=== PATIENT | male | born 1940 | race Caucasian/White ===

== ENCOUNTER 2019-04-19 00:36 | Day surgery (SDC) | payer MEDICARE, SELFPAY ==
[2019-04-01 08:28] VITALS: BMI 28.8
[2019-04-19 10:10] VITALS: BP 144/90; PULSE 58; RESP 16; TEMP 35.9; O2SAT 98; BMI 27.8
[2019-04-19] MEDS: LACTATED RINGERS 1,000 ML 30 ML IV CONT (10:10)
--- NOTE | 2019-04-19 10:36 | WPDANESEPPF ---
Anes - Initial Pre Proc Eval Procedure: Operation Date: 04/19/19 11:30 Proposed Procedures p Excision of Epidermal Cyst Left Mid Back Times Two, Excision of Epidermal Cyst Mid Upper Back - Akshat Lemon MD Date/Time: 04/19/19 10:36 Surgeon: Akshat Lemon MD Pre Op Diagnosis: infected epidermal cyst, non infected epidermal cy Patient Data Age: 79 Gender: M Height: 6 ft 1 in Weight: 95.5 kg Last Vital Signs Temp 35.9 C L 04/19/19 10:10 Pulse 58 L 04/19/19 10:10 Resp 16 04/19/19 10:10 BP 144/90 H 04/19/19 10:10 Pulse Ox 98 04/19/19 10:10 Allergies Allergy/AdvReac Type Severity Reaction Status Date / Time Beta-Blockers Allergy Unknown syncope Verified 04/19/19 10:17 (Beta-Adrenergic Bloc Home Medications Medication Instructions Recorded Confirmed Type aspirin 81 mg tablet,delayed 81 mg PO HS 03/05/19 04/19/19 History release glucosamine 500 mg-msm 100 mg-vit 1 cap PO DAILY 03/05/19 04/19/19 History C 20 ve-aggzu-cmtn-primrose capsule nitroglycerin 0.4 mg sublingual 0.4 mg SUBLINGUAL Q5M PRN 03/05/19 04/19/19 History tablet omega-3 fatty acids 1,000 mg 1,000 mg PO DAILY 03/05/19 04/19/19 History capsule sertraline 50 mg tablet 50 mg PO BID 03/05/19 04/19/19 History simvastatin 20 mg tablet 20 mg PO HS 03/05/19 04/19/19 History Patient hx anesthesia problems: none Family hx anesthesia problems: none PMFSH Past Medical History Medical History Anxiety CAD (coronary artery disease) Cataracts, bilateral Clubbed foot Colorectal cancer Depression Epidermal cyst of neck High cholesterol History of angina History of chemotherapy History of heart disease HTN (hypertension) Hyperlipidemia Mitral valve prolapse MRSA (methicillin resistant Staphylococcus aureus) Surgical History Surgical History H/O aortic valve replacement H/O knee surgery History of cardiac catheterization History of cataract surgery History of colon resection History of coronary artery stent placement History of elbow surgery Right History of inguinal hernia repair History of tonsillectomy Hx of CABG Family History Family History Father Acute myocardial infarction Patient's father is , Onset Age: 70 Mother Cerebrovascular accident, Onset Age: 85 Carcinoma of colon, Onset Age: 85 Family history of malignant neoplasm of breast in first degree relative, Onset Age: 85 Family history of malignant neoplasm of thyroid, Onset Age: 85 Sibling Family history of Parkinson's disease Social History Social History Years smoked: 40 Smoking status: Former smoker Second hand tobacco smoke exposure: Yes Alcohol intake: current Gender identity (if verbalized by the patient): Male Anes - Eval Final PreProcedure Day of Procedure 04/19/19 10:36 Patient weight: overweight Heart: regular rate and rhythm Lungs: decreased breath sounds Airway: Mallampati scale class II Neurological: alert and oriented Last oral intake: >/= 8 hours ASA classification: III Emergent: no Anesthetic plan: proceed Anesthesia type and monitoring: general GIVS and standard monitoring Informed Consent: The patient's anesthetic plan and its attendant risks and benefits were discussed with the patient/family/POA. Questions were solicited and answers provided to the satisfaction of the patient/family/POA.
--- NOTE | 2019-04-19 10:46 | WPDHPUPDATE1 ---
History and Physical Update Update Date/Time: 04/19/19 10:46 History and Physical has been reviewed, including an updated exam of the patient. There are NO changes in the patient's condition. Risks, benefits, and alternatives have been discussed and questions answered. Patient agrees to proceed with procedure.
[2019-04-19] MEDS: ceFAZolin 2 GM/D5W 50 ML 2 GM/50 ML BAG IVPB (10:55)
[2019-04-19] MEDS: BUPIVACAINE/EPINEPHRINE 0.5% 30 ML VIAL 10 ML INFILTRATE (11:19)
[2019-04-19 12:00] VITALS: BP 122/68; PULSE 60; RESP 16; TEMP 36.2; O2SAT 92
[2019-04-19 12:31] VITALS: BP 128/65; PULSE 63; RESP 16
--- NOTE | 2019-04-19 12:35 | P.OP_ITS ---
Procedure Note - Detailed Date of procedure: 04/19/19 Pre-op diagnosis: infected epidermal cyst, non infected epidermal cy Post-op diagnosis: same Procedure performed: Excision of skin lesions (X3) 1. Recently infected epidermal cyst left mid back 2. non infected epidermal cyst slightly medial and above to 1. 3. Not infected epidermal cyst high upper mid back. Description of procedure: The patient was placed in the right lateral decubitus position. After a surgical time out confirming patient and procedure the patient was prepped and draped in the usual sterile fashion. Local anesthetic was administered subcutaneously. The lesion in the midline of his upper back just below where his neck joins the posterior neck measured 1.5 cm in diameter. A vertical, elliptical incision was made around the lesion taking a thin margin circumferentially. I dissected down to the deep subcutaneous tissues and then completely excised the lesion. Bleeding was controlled with electrocautery. The wound was closed in two layers. An un-dyed 4-0 Monocryl deep dermal and then a 4-0 undyed Monocryl running subcuticular closure was completed. We then moved our attention to the 2 adjacent epidermal cysts on the patient's low to mid left back. One had been previously infected and the other one was only 1 cm septated from it and had not been infected. I outlined a long ellipse around both of these and it then it measured has a 6 by 2 cm ellipse of skin including both epidermal cysts. This was subsequently excised in the standard fashion as outlined below. Local anesthetic was administered subcutaneously. An elliptical incision was made around the lesions taking a thin margin circumferentially. I dissected down to the deep subcutaneous tissues and then completely excised the lesions in 1 ellipse using Bovie cautery to do most of the cutting and coagulation. Bleeding was controlled with electrocautery. further Marcaine was placed into the margins of the wound after the excision. The specimen was passed off the field. It was not marked for orientation since I believed that these were most likely benign cysts. The wound was closed in two layers. An un-dyed 3-0 vicryl deep dermal and then a 3-0 undyed Vicryl running subcuticular closure was completed. Surgical glue applied as dressing. Patient tolerated this well. And estimated blood loss was about 5 cc Anesthesia: local and other ( G IV S) Surgeon: Akshat Lemon MD [place] Diver: [facility], OR 1st assist Estimated blood loss (mL): 5 Drains: No Packing: No Pathology: yes (1. 1 6 x 2 cm ellipse of skin from the patient's left mid back containing 2 epidermal cysts 1 that has ruptured and was infected the other 1 which appeared to be quiescent. 2. a 1.5 cm round epidermal cyst from the patient's midline upper back) Complications: No immediate complications Condition: stable Disposition: same day Findings: I did not run into any infection during excision on the left midback skin lesion which appeared to be a infected epidermal cyst a month ago. We did not draining anything from either cyst. Therefore the patient was told not to take anymore oral antibiotics. He did receive 2 g of Ancef just preop prior to this excision.
== END 2019-04-19 12:54 | disposition home or self-care (01) ==
PROVIDERS: PCP Internal Medicine; Visit Provider Surgery
PROC: (CPT 11406; principal; 2019-04-19 11:30)
DX: L72.0 Epidermal cyst (principal); I10 Essential (primary) hypertension; E78.5 Hyperlipidemia, unspecified; I25.10 Atherosclerotic heart disease of native coronary artery without angina pectoris; I34.1 Nonrheumatic mitral (valve) prolapse; F41.8 Other specified anxiety disorders; Z85.038 Personal history of other malignant neoplasm of large intestine; Z92.21 Personal history of antineoplastic chemotherapy; Z79.82 Long term (current) use of aspirin; Z95.4 Presence of other heart-valve replacement; Z95.5 Presence of coronary angioplasty implant and graft; Z95.1 Presence of aortocoronary bypass graft; Z87.891 Personal history of nicotine dependence
CPT/HCPCS: 11406; 11402; 12034; 88305; J0690; J2704; J3010; J7120

== ENCOUNTER 2023-02-25 10:55 | Emergency (ER) | payer MEDICARE, SELFPAY ==
[2023-02-25 11:20] VITALS: BP 163/92; PULSE 64; RESP 16; TEMP 36.4; O2SAT 97
--- NOTE | 2023-02-25 11:50 | ED.EAR ---
HPI - Ear Problem General Chief complaint: Ear Stated complaint: Blocked Ear Time Seen by Provider: 02/25/23 11:50 Source: patient Mode of arrival: ambulatory Limitations: no limitations History of Present Illness HPI Narrative: Amor is a an 83-year-old male patient presenting to clinic today with complaints of decreased hearing and feels as though there is fluid behind his right ear. He reports that he had COVID 2 weeks ago. States that he has a swishing noise in his right ear. Related Data Home Medications Medication Instructions Recorded Confirmed aspirin 81 mg tablet,delayed 81 mg PO HS 03/05/19 08/09/22 release (Adult Low Dose Aspirin) glucosamine 500 mg-msm 100 mg-vit 1 cap PO DAILY 03/05/19 08/09/22 C 20 bs-hxjfr-rguh-primrose capsule (Joint Support Complex) sertraline 50 mg tablet 50 mg PO BID 03/05/19 08/09/22 Allergies Allergy/AdvReac Type Severity Reaction Status Date / Time Beta-Blockers Allergy Unknown syncope Verified 08/09/22 08:46 (Beta-Adrenergic Bloc Review of Systems Review of Systems: Pertinent positives per HPI. Patient denies any fever, chills, rash, headache, visual changes, dizziness, cough, runny nose, sore throat, shortness of breath, chest pain, palpitations, nausea, vomiting, diarrhea, constipation, abdominal pain, or any urinary issues. [facility] Past Medical History Medical History (Updated 02/25/23 @ 11:52 by Lance Rosado APRN) Anxiety CAD (coronary artery disease) Cataracts, bilateral Clubbed foot Colorectal cancer Depression Epidermal cyst of neck High cholesterol History of angina History of chemotherapy History of heart disease HTN (hypertension) Hyperlipidemia Mitral valve prolapse MRSA (methicillin resistant Staphylococcus aureus) Surgical History Surgical History H/O aortic valve replacement H/O knee surgery H/O total cystectomy History of cardiac catheterization History of cataract surgery History of colon resection History of coronary artery stent placement History of elbow surgery Right History of inguinal hernia repair History of tonsillectomy Hx of CABG Family History Family History Father Acute myocardial infarction Patient's father is , Onset Age: 70 Mother Cerebrovascular accident, Onset Age: 85 Carcinoma of colon, Onset Age: 85 Family history of malignant neoplasm of breast in first degree relative, Onset Age: 85 Family history of malignant neoplasm of thyroid, Onset Age: 85 Sibling Family history of Parkinson's disease Social History Social History Years smoked: 40 Smoking status: Former smoker Second hand tobacco smoke exposure: Yes Alcohol intake: current Drinks per week: 7 Substance use: never Lack of Transportation: No Lack of Food: Never True Current Housing: I Have Housing Concerned About Future Housing: No Difficulty Paying Gas/Electric Bills: No Difficulty Paying for Meds: No Currently Unemployed: No Education: High School Diploma/GED Difficulty w/ Childcare or Family Care: No Gender identity (if verbalized by the patient): Male Comments At the time of my signature, I reviewed and agree with the nursing past medical, surgical, social, and family history. There is no relevant family history pertinent to the patient complaint. Exam Narrative: General: Well-developed, well nourished, in no apparent distress Head: Normocephalic, atraumatic Eyes: Pupils equally round and reactive to light bilaterally, EOM intact, sclera and conjunctive clear, no discharge, lids normal Ears: Left tMs intact and clear, right TM intact, congested, with fluid noted behind the TM, ear canals ceruminous, no drainage, grossly hearing normal. Nose: Nares patent, no discharge, no i
== END 2023-02-25 11:58 | disposition home or self-care (01) ==
PROVIDERS: Emergency Provider Nurse Practitioner Family; PCP Internal Medicine
DX: H65.01 Acute serous otitis media, right ear (principal); I25.10 Atherosclerotic heart disease of native coronary artery without angina pectoris; I10 Essential (primary) hypertension; E78.5 Hyperlipidemia, unspecified; Z85.038 Personal history of other malignant neoplasm of large intestine; Z87.891 Personal history of nicotine dependence
CPT/HCPCS: 99213; G0463